=== PATIENT | male | born 1975 | race Two or more races ===

== ENCOUNTER 2024-02-10 18:04 | Inpatient (IN) | payer MEDICARE, OTHER ==
[2024-02-10] MEDS ORDERED: ONDANSETRON HCL 4 MG/2 ML VIAL IV PRN (21:15)
[2024-02-10] MEDS ORDERED: ACETAMINOPHEN 325 MG TAB PO PRN (21:15)
[2024-02-10] MEDS ORDERED: NITROGLYCERIN 0.4 MG SL TAB SL PRN (21:15)
[2024-02-10] MEDS ORDERED: MORPHINE SULFATE INJ 2 MG/ml SYRG IV PRN (21:15)
[2024-02-10] MEDS ORDERED: HYDROcodone-ACET 5/325MG TAB PO PRN (21:15)
[2024-02-10 21:20] VITALS: BP 171/87; PULSE 58; PULSE 64; RESP 18; TEMP 97.9; O2SAT 100
[2024-02-10] MEDS: FOLIC ACID 1 MG in D5W 5% 50 ML INJ SCH (21:37)
[2024-02-10] MEDS ORDERED: IBUPROFEN 600 MG TAB PO PRN (21:45)
[2024-02-10] MEDS ORDERED: METH-1181 PO (22:01)
[2024-02-10 22:06] LABS: Basophils # (auto) 0.1 10 ^3/uL (0-0.2); Basophils % (auto) 1.1 % (0.0-2.0); Eosinophils # (auto) 0 10 ^3/uL (0-0.8); Eosinophils % (auto) 0.5 % (0.0-7.0); Hematocrit 40.4 % (41.0-53.0); Hemoglobin 13.7 g/dL (13.5-17.5); Lymphocytes # (auto) 1.4 10 ^3/uL (0.4-5.4); Lymphocytes % (auto) 20.9 % (10.0-50.0); Mean Corpuscular Hemoglobin 29.3 pg (28.0-32.0); Mean Corpuscular Hgb Conc. 33.9 g/dL (32.0-36.0); Mean Corpuscular Volume 86.4 fL (80.0-100.0); Monocytes # (auto) 0.6 10 ^3/uL (0-1.3); Monocytes % (auto) 9.5 % (0.0-12.0); Neutrophils # (auto) 4.6 10 ^3/uL (1.6-8.6); Nucleated Red Blood Cells % 0.1 %; Red Blood Cells 4.67 10^6/uL (4.5-5.90); Red Cell Distribution Width 15.3 % (11.8-14.3); White Blood Cell 6.8 10^3/uL (4.4-10.8)
[2024-02-10 22:18] LABS: Alanine Aminotransferase 137 U/L (7-40); Albumin 4.8 g/dL (3.2-4.8); Alkaline Phosphatase 125 U/L (46-116); Anion Gap 9 (5-15); Aspartate Aminotransferase 227 U/L (13-40); BUN/Creatinine Ratio 10.3 (10.0-20.0); Blood Urea Nitrogen 11 mg/dL (9-23); Calcium 9.9 mg/dL (8.5-10.1); Carbon Dioxide 25 mmol/L (20-30); Chloride 99 mmol/L (98-107); Glucose 145 mg/dL (74-106); Potassium 3.9 mmol/L (3.5-5.1); Sodium 133 mmol/L (136-145)
[2024-02-10 22:19] LABS: Bilirubin, Total 1.7 mg/dL (0.2-1.0); Total Protein 7.8 g/dL (5.7-8.2)
[2024-02-10] MEDS ORDERED: SILD100T73 PO (22:22)
[2024-02-10] MEDS ORDERED: ERGO1CAP23 PO (22:22)
[2024-02-10] MEDS ORDERED: RIFA300C58 PO (22:22)
[2024-02-10] MEDS ORDERED: GABA-1250 PO (22:22)
[2024-02-10] MEDS ORDERED: CETI10TA2 PO (22:22)
[2024-02-10] MEDS ORDERED: FERR325T20 PO (22:22)
[2024-02-10] MEDS ORDERED: TAMS0.4C36 PO (22:22)
[2024-02-10] MEDS ORDERED: POTA-36 PO (22:22)
[2024-02-10] MEDS ORDERED: TRAM50TA2 PO (22:22)
[2024-02-10] MEDS ORDERED: METO25TA93 PO (22:22)
[2024-02-10] MEDS ORDERED: ONDA-188 (22:22)
[2024-02-10] MEDS ORDERED: BUSP15TA60 PO (22:22)
[2024-02-10] MEDS ORDERED: SPIR25TA8 PO (22:22)
[2024-02-10] MEDS ORDERED: FOLI-119 PO (22:22)
[2024-02-10] MEDS ORDERED: AMLO1TAB22 PO ×2 (22:22)
[2024-02-10] MEDS ORDERED: DIVA500T13 PO (22:22)
[2024-02-10] MEDS ORDERED: TRAZ-227 PO (22:22)
[2024-02-10] MEDS ORDERED: FAMO-12 PO (22:22)
[2024-02-10] MEDS ORDERED: NALT50TA27 PO (22:22)
[2024-02-10] MEDS ORDERED: DULO1CAP6 PO (22:22)
[2024-02-10] MEDS ORDERED: NALT380I IM (22:22)
[2024-02-10] MEDS ORDERED: KEP500T PO (22:22)
[2024-02-10] MEDS ORDERED: ALLO100T PO (22:22)
[2024-02-10] MEDS ORDERED: ATOR20TA50 PO (22:22)
[2024-02-10] MEDS ORDERED: THIA100T10 GT (22:22)
[2024-02-10] MEDS ORDERED: IBUP-1456 PO (22:22)
[2024-02-10] MEDS: SODIUM CHLORIDE 0.9% 1,000 ML IV SCH (23:50)
[2024-02-11] VITALS (7 sets, daily range): BP systolic 140–172; BP diastolic 86–94; PULSE 56–72; RESP 16–19; TEMP 36.7; O2SAT 95–100
[2024-02-11] MEDS: THIAMINE 100mg/ml INJ (200mg/2ml VIAL) IV SCH
[2024-02-11 06:53] LABS: Basophils # (auto) 0 10 ^3/uL (0-0.2); Basophils % (auto) 0.6 % (0.0-2.0); Eosinophils # (auto) 0.1 10 ^3/uL (0-0.8); Eosinophils % (auto) 1.2 % (0.0-7.0); Hematocrit 33.9 % (41.0-53.0); Hemoglobin 11.6 g/dL (13.5-17.5); Lymphocytes # (auto) 1.8 10 ^3/uL (0.4-5.4); Lymphocytes % (auto) 28.2 % (10.0-50.0); Mean Corpuscular Hemoglobin 29.7 pg (28.0-32.0); Mean Corpuscular Hgb Conc. 34.1 g/dL (32.0-36.0); Mean Corpuscular Volume 87.1 fL (80.0-100.0); Monocytes # (auto) 0.7 10 ^3/uL (0-1.3); Monocytes % (auto) 11.8 % (0.0-12.0); Neutrophils # (auto) 3.7 10 ^3/uL (1.6-8.6); Neutrophils % (auto) 58.2 % (37.0-80.0); Nucleated Red Blood Cells % 0.1 %; Red Cell Distribution Width 15.7 % (11.8-14.3); White Blood Cell 6.3 10^3/uL (4.4-10.8)
[2024-02-11 07:08] LABS: Alanine Aminotransferase 111 U/L (7-40); Albumin 3.8 g/dL (3.2-4.8); Alkaline Phosphatase 100 U/L (46-116); Anion Gap 9 (5-15); Aspartate Aminotransferase 154 U/L (13-40); Bilirubin, Total 1.9 mg/dL (0.2-1.0); Blood Urea Nitrogen 8 mg/dL (9-23); Carbon Dioxide 24 mmol/L (20-30); Chloride 103 mmol/L (98-107); Glucose 132 mg/dL (74-106); Potassium 3.5 mmol/L (3.5-5.1); Sodium 136 mmol/L (136-145); Total Protein 6.2 g/dL (5.7-8.2)
[2024-02-11 07:18] LABS: BUN/Creatinine Ratio 9.5 (10.0-20.0)
[2024-02-11] MEDS: MULTIPLE VITAMIN TAB PO SCH (09:45)
[2024-02-11] MEDS: DOCUSATE SOD 100 MG CAP PO PRN (10:01)
[2024-02-11] MEDS: hydrALAZINE HCL 20 MG/ML VL IV PRN (10:01)
[2024-02-11] MEDS: LORazepam 2MG/ML-1ML VIAL IV PRN (11:54)
[2024-02-11] MEDS: METOPROLOL SUCCINATE XL 50 MG TAB PO SCH (14:36)
[2024-02-11] MEDS: amLODIPine BESYLATE 5 MG TAB PO SCH (14:37)
== END 2024-02-11 17:10 | disposition home or self-care (01) | DRG 917 ==
LOC: TELE-CENTR 20:12 → UNDOADMIN 20:12 → TELE-CENTR 21:07
PROVIDERS: ADMIT Nurse Practitioner Family; ATTEND Internal Medicine
DX: T51.91XA Toxic effect of unspecified alcohol, accidental (unintentional), initial encounter (principal); G93.41 Metabolic encephalopathy; D72.829 Elevated white blood cell count, unspecified; I10 Essential (primary) hypertension; E78.5 Hyperlipidemia, unspecified; R56.9 Unspecified convulsions
CPT/HCPCS: 36415; 80053; 83605; 85025; G0378; J7060